=== PATIENT | male | born 1970 | race Caucasian/White ===

== ENCOUNTER 2017-05-09 20:30 | Emergency (ER) | payer SELFPAY ==
[~2017-05-09] VITALS: Ht 172.7 cm; Wt 72.0 kg
[~2017-05-09 20:30] MED LIST: OXYC1SOL5 PO
[2017-05-09 20:31] VITALS: BP 146/94; PULSE 90; RESP 16; TEMP 98; O2SAT 100
--- NOTE | 2017-05-09 20:59 | PD ---
Physical Exam Date Seen by Provider: May 09, 2017 Time Seen by Provider: 20:58 Narrative 46 yo male here for headache. Having nausea and vomiting. On for 1 week. has fever and fatigue. Hurts to swallow. Tried "everything" for it but not better. here for eval. Vitals stable in triage. Awaiting bed placement. Data Data Last Documented VS Vital Signs Date Time Temp Pulse Resp B/P (MAP) Pulse Ox O2 Delivery O2 Flow Rate FiO2 05/09/17 20:31 98.0 90 16 146/94 (111) 100 Room Air [facility] Medical Record Reviewed: Yes Supervised Visit with ROZ: No Cecil Geiger May 09, 2017 20:59
[2017-05-09] MEDS ORDERED: diphenhydrAMINE HCL 50 MG/ML VIAL IV PUSH ONE (22:30)
[2017-05-09] MEDS ORDERED: PROCHLORPERAZINE INJ 10 MG/2 ML VIAL IV PUSH ONE (22:30)
[2017-05-09] MEDS ORDERED: KETOROLAC TROMETHAMINE 30 MG/ML (IVP) VIAL IV PUSH ONE (22:30)
[2017-05-09] MEDS ORDERED: SODIUM CHLOR 0.9% 1000 ML INJ 1,000 ML IV ONE (22:30)
[2017-05-09 22:57] LABS: HEMATOCRIT 43.1 % (39.0-51.0); MEAN CORPUSCULAR HEMOGLOBIN 30.3 PG (27.0-34.0); PLATELET COUNT 301 TH/MM3 (150-450); RED BLOOD COUNT 4.85 MIL/MM3 (4.50-5.90); RED CELL DISTRIBUTION WIDTH 13.4 % (11.6-17.2); WHITE BLOOD COUNT 10.5 TH/MM3 (4.0-11.0)
[2017-05-09 23:05] LABS: HEMO FLAGS AUTO DIFF
[2017-05-09 23:16] LABS: BICARBONATE 27.2 MEQ/L (21.0-32.0); POTASSIUM 4.1 MEQ/L (3.5-5.1)
[2017-05-09 23:26] LABS: BANDS 1 % (0-6); NEUTROPHIL # MANUAL DIFF 9.5 TH/MM3 (1.8-7.7); POLYS (SEG NEUTROPHILS) 89 % (16-70); WBC DIFF SAMPLE 100
[2017-05-09 23:27] LABS: PLATELET ESTIMATE SMEAR NORMAL (NORMAL); PLATELET MORPHOLOGY NORMAL (NORMAL); SCAN/DIFF FINAL DIFF MANUAL
[2017-05-09 23:30] LABS: CALCIUM-PROTEIN CORRECTED 8.3 MG/DL (8.5-10.1)
--- NOTE | 2017-05-10 00:09 | PD ---
HPI Chief Complaint: Headache Time Seen by Provider: 22:18 Travel History International Travel<30 days: No Contact w/Intl Traveler<30days: No Traveled to known affect area: No History of Present Illness HPI This is a 46-year-old male who presents to the emergency department with a headache behind the left eye, constant for 5 days, worse in the morning, improved with rest, associated with intermittent episodes of vomiting. He says the pain is right behind his eye and he has some tearing from the eye. He says his had headaches like this in the past but he hasn't had one in a year. He said the headache was gradual onset. PFSH Past Medical History Autoimmune Disease: No Anxiety: No Depression: No Cancer: No Cardiovascular Problems: No Diabetes: No Diminished Hearing: No Endocrine: No Genitourinary: No Hepatitis: No Hiatal Hernia: No Immune Disorder: No Musculoskeletal: Yes (scoliosis) Neurologic: No Psychiatric: No Reproductive: No Respiratory: No Thyroid Disease: No Tetanus Vaccination: < 5 Years Influenza Vaccination: No Past Surgical History Abdominal Surgery: No AICD: No Cardiac Surgery: No Ear Surgery: No Endocrine Surgery: No Eye Surgery: No Genitourinary Surgery: No Gynecologic Surgery: No Joint Replacement: No Oral Surgery: No Pacemaker: No Thoracic Surgery: No Social History Alcohol Use: Yes (few beers weekly) Tobacco Use: Yes (1 PPD) Substance Use: Yes (MARIJUANA) Allergies-Medications (Allergen,Severity, Reaction): Coded Allergies: penicillin G (Unverified Allergy, Severe, as a child, 05/09/17) Reported Meds & Prescriptions Reported Meds & Active Scripts Active No Active Prescriptions or Reported Medications Review of Systems Except as stated in HPI: all other systems reviewed are Neg Physical Exam Narrative GENERAL:Well appearing, no acute distress SKIN: Focused skin assessment warm and dry. HEAD: Atraumatic. Normocephalic. EYES: Pupils equal and round. No injection or drainage. Normal-appearing left eye with no conjunctival injection or cloudy cornea. ENT: Moist mucous membranes NECK: Trachea midline. CARDIOVASCULAR: Regular rate and rhythm. No murmur appreciated. RESPIRATORY: Clear to auscultation. Breath sounds equal bilaterally. GASTROINTESTINAL: Abdomen soft, non-tender, nondistended. MUSCULOSKELETAL: No obvious deformities. NEUROLOGICAL: Awake and alert. No obvious cranial nerve deficits. No dysarthria or aphasia. No upper or lower extremity drift. No upper extremity ataxia. Visual perry intact. PSYCHIATRIC: Appropriate mood and affect; insight and judgment normal. Data Data Last Documented VS Vital Signs Date Time Temp Pulse Resp B/P (MAP) Pulse Ox O2 Delivery O2 Flow Rate FiO2 05/09/17 20:31 98.0 90 16 146/94 (111) 100 Room Air Orders Orders Complete Blood Count With Diff (05/09/17 22:28) Basic Metabolic Panel (Bmp) (05/09/17 22:28) ^ Insert Iv (05/09/17 22:28) Sodium Chlor 0.9% 1000 Ml Inj (Ns 1000 M (05/09/17 22:30) Ketorolac Inj (Toradol Inj) (05/09/17 22:30) Prochlorperazine Inj (Compazine Inj) (05/09/17 22:30) Diphenhydramine Inj (Benadryl Inj) (05/09/17 22:30) Protein Corrected Calcium(Pcc) (05/09/17 22:40) Labs Laboratory Tests Test 05/09/17 22:40 White Blood Count 10.5 TH/MM3 Red Blood Count 4.85 MIL/MM3 Hemoglobin 14.7 GM/DL Hematocrit 43.1 % Mean Corpuscular Volume 89.0 FL Mean Corpuscular Hemoglobin 30.3 PG Mean Corpuscular Hemoglobin Concent 34.0 % Red Cell Distribution Width 13.4 % Platelet Count 301 TH/MM3 Mean Platelet Volume 8.5 FL CBC Comment AUTO DIFF Differential Total Cells Counted 100 Neutrophils % (Manual) 89 % Band Neutrophils % 1 % Lymphocytes % 4 % Monocytes % 6 % Neutrophils # (Manual) 9.5 TH/MM3 Differential Comment FINAL DIFF MANUAL Platelet Estimate NORMAL Platelet Morphology Comment NORMAL Red Cell Morphology Comment NORMAL Blood Urea Nitrogen 12 MG/DL Creatinine 0.98 MG/DL Random Glucose 107 MG/DL Total Protein 5.0 GM/DL Calcium Level 7.2 MG/DL Sodium Level 141 MEQ/L Potassium Level 4.1 MEQ/L Chloride Level 107 MEQ/L Carbon Dioxide Level 27.2 MEQ/L Anion Gap 7 MEQ/L Estimat Glomerular Filtration Rate 83 ML/MIN Protein Corrected Calcium 8.3 MG/DL [facility] Medical Decision Making Medical Screen Exam Complete: Yes Emergency Medical Condition: Yes Interpretation(s) Afebrile, no tachycardia, hypertensive No leukocytosis Mild hypocalcemia Differential Diagnosis Migraine headache, cluster headache, tension headache, subarachnoid hemorrhage Narrative Course This is a 46-year-old male who presents to the emergency department with a headache affecting the left side of his head that's been going on for 6 days. His symptoms are consistent with a cluster headache. Labs were obtained given he has a history renal failure which were reassuring except for hypocalcemia. He has a normal neurologic exam. The headache was gradual in onset and similar to headaches she's had in the past I do subarachnoid hemorrhage. I don't think any imaging is warranted. Patient feels much better after oxygen administration and a migraine cocktail. He'll be discharged home. Diagnosis Primary Impression: Cluster headache Qualified Codes: G44.011 - Episodic cluster headache, intractable Additional Impression: Hypocalcemia Patient Instructions: General Instructions Additional Instructions: If you develop severe worsening headache, persistent vomiting, numbness, weakness, difficulty walking or difficulty talking return to the emergency department immediately. Sometimes in the emergency department we did not identify the cause of headaches. If you continued to have headaches it is very important that you followup with your primary care physician as you may need further testing with an MRI. Med/Other Pt SpecificInfo: Prescription(s) given Scripts Naproxen (Naproxen) 500 Mg Tab 500 MG PO BID Y for PAIN SCALE 4 TO 10, #15 TAB 0 Refills Prov: Ana Larose MD 05/10/17 Calcium Carbonate (Calcium Carbonate) 1,500 Mg Tab 1500 MG PO DAILY for Calcium Supplement, #7 TAB 0 Refills 1,500 mg calcium carbonate (600 mg elemental calcium) Prov: Ana Larose MD 05/10/17 Disposition: 01 DISCHARGE HOME Condition: Stable Ana Larose MD May 10, 2017 00:09
[2017-05-10] MEDS ORDERED: CALC600T4 PO (00:14)
[2017-05-10] MEDS ORDERED: NAPR500T PO (00:15)
== END 2017-05-10 00:30 | disposition home or self-care (01) ==
LOC: NEPD 20:30
DX: G44.011 Episodic cluster headache, intractable (principal); E83.51 Hypocalcemia; F17.200 Nicotine dependence, unspecified, uncomplicated
CPT/HCPCS: 80048; 84155; 85007; 85027; 96374; 96375; 99284; J0780; J1200; J1885; J7030